=== PATIENT | female | born 1985 | race Caucasian/White ===

== ENCOUNTER 2016-09-16 15:49 | Emergency (ER) | payer OTHER ==
[~2016-09-16] VITALS: Ht 160 cm; Wt 58.5 kg
[2016-09-16 16:06] VITALS: Ht 160 cm; Wt 58.5 kg
[2016-09-16] MEDS ORDERED: SOD CHLORIDE 0.9% 1,000 ML IV STA (16:53)
[2016-09-16] MEDS ORDERED: morphine 4 MG/ML VIAL IV STA (16:53)
[2016-09-16] MEDS ORDERED: ONDANSETRON 4 MG INJ IV STA (16:53)
[2016-09-16 17:26] LABS: HEMATOCRIT 40.3 % (37.0-47.0); HEMOGLOBIN 13.6 g/dl (12.0-16.0); MEAN CORPUSCULAR HEMOGLOBIN 29.3 pg (29.0-33.0); MEAN CORPUSCULAR HGB CONC 33.8 g/dl (32.0-37.0); MEAN CORPUSCULAR VOLUME 86.5 fl (82.0-101.0); MEAN PLATELET VOLUME 10.9 fl (7.4-10.4); PLATELET COUNT 164 10^3/UL (140-440); RED BLOOD COUNT 4.67 10^6/ul (4.20-5.40); UNCORRECTED WBC 17.9 10^3/ul (4.8-10.8); WHITE BLOOD COUNT 17.9 10^3/ul (4.8-10.8)
[2016-09-16 17:27] LABS: ADD UMIC YES; URINE BILIRUBIN (Dip) NEGATIVE (NEGATIVE); URINE BLOOD (Dip) 3+ (NEGATIVE); URINE COLOR LT. YELLOW (YELLOW); URINE GLUCOSE (Dip) NEGATIVE (NEGATIVE); URINE KETONES (Dip) 3+ (NEGATIVE); URINE LEUKOCYTE ESTERASE (Dip) NEGATIVE (NEGATIVE); URINE NITRITE (Dip) NEGATIVE (NEGATIVE); URINE TOTAL PROTEIN (Dip) TRACE (NEGATIVE); URINE UROBILINOGEN (Dip) 0.2 E.U./dL (0.1-1.0)
[2016-09-16 17:31] LABS: CONDITION 1; LH ANALYZER COMMENTS 1; SUSPECT 1
[2016-09-16 17:35] LABS: ALBUMIN 4.6 g/dl (3.3-4.9); BACTERIA,URINE RARE; SQUAMOUS EPITHELIAL CELL,UR MODERATE; URINE RBCS 0-2 /HPF (0)
[2016-09-16 17:36] LABS: POTASSIUM 3.9 mmol/L (3.5-5.1)
[2016-09-16 17:37] LABS: CREATININE 0.61 mg/dl (0.44-1.00)
[2016-09-16 17:38] LABS: ALBUMIN/GLOBULIN RATIO 1.48; BILIRUBIN,INDIRECT 1.3 mg/dl (0-1.1); BILIRUBIN,TOTAL 1.3 mg/dl (0.2-1.3); TOTAL PROTEIN 7.7 g/dl (6.1-8.1)
[2016-09-16 17:39] LABS: CALCIUM 9.8 mg/dl (8.4-10.2)
[2016-09-16 17:59] LABS: LYMPHOCYTES # 1.3 10^3/ul (0.8-2.9); MONOCYTE # 0.9 10^3/ul (0.3-0.9); NEUTROPHIL # 15.8 10^3/ul (1.6-7.5)
[2016-09-16 18:00] LABS: PLATELET ESTIMATE PLT APPEAR ADEQUATE
--- NOTE | 2016-09-16 18:03 | RADRPT ---
PROCEDURE: Ultrasound pelvis CLINICAL INDICATION: Pelvic pain. Command spine of menstrual cycle, today. TECHNIQUE: Ultrasound pelvis COMPARISON: None FINDINGS: Uterus measures 77 x 40 x 59 mm. Right ovary measures 35 x 14 x 22 mm. Left ovary measures 29 x 20 x 25 mm. Endometrium is slightly thickened at 13 mm. No free fluid or adnexal masses. No ovarian torsion. IMPRESSION: 1. Slightly thickened endometrium measures 13 mm. 2. Otherwise, no acute process in the pelvis. Physician Jodie Date Time Electronically viewed and signed by Physician Jodie on 09/16/2016 18:03 RS/
--- NOTE | 2016-09-16 18:04 | RADRPT ---
PROCEDURE: CT Abdomen and Pelvis without contrast. CLINICAL INDICATION: Endometriosis. Abdominal pelvic pain. TECHNIQUE: CT scan of the abdomen and pelvis without contrast was performed on a multidetector hig h-resolution CT scanner. The patient was scanned without intravenous contrast. Coronal and sagittal reformatted images were obtained from the axial source images. Images were reviewed on a high-resol [employer] PACS workstation. The total exam CTDI equals 7.37 mGy and the total exam DLP equals 353.47 mGy -cm. One or more of the following dose reduction techniques were used: - Automated exposure control. - Adjustment of the mA and/or kV according to patient size. - Use of iterative reconstruction technique. COMPARISON: Pelvic ultrasound dated 09/16/2016, performed earlier today FINDINGS: CT abdomen: Evaluation is limited due to lack of oral and IV contrast. The lung bases are clear. The heart size is normal, without pericardial thickening or effusion. Th e liver is normal in size and density without focal mass or intrahepatic biliary dilatation. The sp atilio is normal in size and homogeneous in density. The stomach is partially collapsed, but is gross ly unremarkable. The pancreas as visualized is normal. The gallbladder and biliary tree are unrema rkable and there is no evidence for biliary dilatation. The adrenal glands are symmetric and normal . The kidneys are symmetrically unremarkable as well. No renal calculus or obstructive uropathy or mass lesion is seen. The aorta is of normal caliber. There is no retroperitoneal lymphadenopathy. The ted hepatis reg ion is clear. The bowel and mesentery, as visualized, are equally unremarkable. CT pelvis: The small bowel loops situated within the pelvis are unremarkable. The appendix is normal. The pel sissy organs are remarkable for enlargement and heterogeneity of the left ovary and left adnexa. Pelv ic MRI is advised for more complete assessment. The pelvic sidewalls and inguinal regions are clear . The sigmoid colon and rectum are unremarkable. No mass or adenopathy is seen. No free fluid is p resent. No acute inflammation is identified at this time. Benign phleboliths are seen within the lo wer pelvis. The surrounding osseous structures are unremarkable. No osteolytic or osteoblastic lesion is detect ed. IMPRESSION: 1. Limited study due to lack of oral and IV contrast. 2. No mass, lymphadenopathy, or focal acute inflammatory process. 3. Enlargement and heterogeneity of the left ovary and adnexa. Endometriosis implant may be presen t at this location. MRI is recommended for more complete assessment. RPTAT: HMJB .Javad Bernard MD, Date Time Electronically viewed and signed by .Javad Bernard MD, on 09/16/2016 18:04 .B/
[2016-09-16] MEDS ORDERED: HYDR-906 PO (18:28)
[2016-09-16] MEDS ORDERED: ONDA4TAB8 PO (18:28)
[2016-09-16] MEDS ORDERED: IBUP-1542 PO (18:28)
--- NOTE | 2016-09-16 18:40 | ERD ---
ER Documentation Chief Complaint Date/Time DATE: 09/16/16 TIME: 18:34 Chief Complaint AP since 10 AM, Vomited 12 X'S TODAY, hot and cold flashes. HPI This is a 31-year-old female that presents to the ER with pelvic pain that started this morning at 10 AM. Patient got her period today and states she has endometriosis and experiences this occasionally with her periods. Patient has vomited 12 times today. Pain is cramping in nature and is intermittent. She states it feels as if she is having contractions. She denies any fevers or chills. She denies any diarrhea. Patient's diagnosis has been confirmed by exploratory laparoscopy. ROS 12 point review of systems was done, all negative except per HPI. Medications Home Meds Active Scripts Ibuprofen* (Motrin*) 600 Mg Tab, 600 MG PO Q6, #30 TAB Prov:CARLOS ALBERTO NEGRON 09/16/16 Hydrocodone/Acetaminophen (Maybell 5-325 Tablet) 1 Each Tablet, 1 TAB PO Q6H Y for PAIN, #20 TAB Prov:CARLOS ALBERTO NEGRON 09/16/16 Ondansetron Hcl* (Zofran*) 4 Mg Tablet, 4 MG PO Q6H for NAUSEA AND/OR VOMITING, #30 TAB Prov:CARLOS ALBERTO NEGRON 09/16/16 PMhx/Soc Hx Alcohol Use: No Hx Substance Use: No Hx Tobacco Use: No Physical Exam Vitals Vital Signs Date Time Temp Pulse Resp B/P Pulse Ox O2 Delivery O2 Flow Rate FiO2 09/16/16 16:06 97.9 62 18 111/66 100 Physical Exam GENERAL: patient is in significant distress secondary to pain. HEENT: Atraumatic. CHEST: Clear to auscultation bilaterally. There are no rales, wheezes or rhonchi. HEART: Regular rate and rhythm. No murmurs, clicks, rubs or gallops. ABDOMEN: Soft, nontender and nondistended. Good bowel sounds. No rebound or guarding. No gross peritonitis. No gross organomegaly or masses. No Alas sign or McBurney point tenderness. ttp in the pelvic area. BACK: No midline or flank tenderness. NEURO: Alert and oriented. SKIN: The skin is warm and dry. Result Diagram: 09/16/16 1700 09/16/16 1700 Results 24 hrs Laboratory Tests Test 09/16/16 17:00 Alanine Aminotransferase (ALT/SGPT) 23IU/L Albumin 4.6g/dl Albumin/Globulin Ratio 1.48 Alkaline Phosphatase 64IU/L Anion Gap 19 Aspartate Amino Transf (AST/SGOT) 27IU/L Blood Morphology Comment Blood Urea Nitrogen 12mg/dl Calcium Level 9.8mg/dl Carbon Dioxide Level 23mmol/L Chloride Level 104mmol/L Creatinine 0.61mg/dl Direct Bilirubin 0.00mg/dl Giant Platelets RARE Globulin 3.10g/dl Glucose Level 121mg/dl Hematocrit 40.3% Hemoglobin 13.6g/dl Indirect Bilirubin 1.3mg/dl Large Platelets OCCASIONAL Lipase 74U/L Lymphocytes # 1.310^3/ul Lymphocytes % 7.0% Mean Corpuscular Hemoglobin 29.3pg Mean Corpuscular Hemoglobin Concent 33.8g/dl Mean Corpuscular Volume 86.5fl Mean Platelet Volume 10.9fl Monocytes # 0.910^3/ul Monocytes % 5.0% Neutrophils # 15.810^3/ul Neutrophils % 88.0% Platelet Count 22130^3/UL Platelet Estimate PLT APPEAR ADEQUATE Potassium Level 3.9mmol/L Red Blood Count 4.6710^6/ul Red Cell Distribution Width 14.0% Sodium Level 142mmol/L Total Bilirubin 1.3mg/dl Total Protein 7.7g/dl Urine Bacteria RARE Urine Bilirubin NEGATIVE Urine Clarity CLEAR Urine Color LT. YELLOW Urine Glucose NEGATIVE% Urine Hemoglobin 3+ Urine Ketones 3+ Urine Leukocyte Esterase NEGATIVE Urine Microscopic RBC 0-2/HPF Urine Microscopic WBC 0-2/HPF Urine Nitrite NEGATIVE Urine Specific Aurelia 1.020 Urine Squamous Epithelial Cells MODERATE Urine Total Protein TRACE Urine Urobilinogen 0.2 E.U./dL Urine pH 7.0 White Blood Count 17.910^3/ul Current Medications Medications (Trade) Dose Ordered Sig/Erika Route PRN Reason Start Time Stop Time Status Last Admin Dose Admin Sodium Chloride (NS) 1,000 ml @ 1,000 mls/hr Q1H STAT IV 09/16/16 16:53 09/16/16 17:52 DC 09/16/16 17:06 Morphine Sulfate (morphine) 5 mg ONCE STAT IV 09/16/16 16:53 09/16/16 16:56 DC 09/16/16 17:06 Ondansetron HCl (Zofran Inj) 4 mg ONCE STAT IV 09/16/16 16:53 09/16/16 16:56 DC 09/16/16 17:06 Departure Diagnosis: Primary Impression: Abdominal pain Condition: Stable Patient Instructions: Abdominal Pain Additional Instructions: Call your primary care doctor TOMORROW for an appointment during the next 1-2 days.See the doctor sooner or return here if your condition worsens before your appointment time. CARLOS ALBERTO NEGRON Sep 16, 2016 18:40
[2016-09-16] MEDS ORDERED: SOD CHLORIDE 0.9% 1,000 ML IV ONE (19:00)
[2016-09-16 19:27] VITALS: BP 109/57; PULSE 69; RESP 16
== END 2016-09-16 19:31 | disposition home or self-care (01) ==
LOC: FTE 15:49
DX: R10.2 Pelvic and perineal pain (principal); R11.10 Vomiting, unspecified
CPT/HCPCS: 74176; 76856; 80053; 81001; 83690; 85025; J2270; J2405; J7030; 36415; 81003; 96374; 96375

== ENCOUNTER 2016-12-05 13:18 | Emergency (ER) | payer OTHER ==
[~2016-12-05] VITALS: Ht 160 cm; Wt 58.0 kg
[~2016-12-05 13:18] MED LIST: HYDR-906 PO; IBUP-1542 PO; ONDA4TAB8 PO
[2016-12-05 13:40] VITALS: Ht 160 cm; Wt 58.0 kg
[2016-12-05] MEDS ORDERED: ONDANSETRON (ODT) 4 MG TAB ODT STA (15:47)
[2016-12-05 15:54] LABS: URINE BLOOD (Dip) POC 3+ (NEGATIVE)
[2016-12-05] MEDS ORDERED: HYDROCODONE/APAP (5/325) TAB PO ONE (16:00)
--- NOTE | 2016-12-05 16:13 | ERD ---
ER Documentation Chief Complaint Date/Time DATE: 12/05/16 TIME: 16:13 Chief Complaint Pelvic pain since 11 am this morning, Dx of edometriosis HPI This is a 31-year-old female who presents to the emergency department today complaining of pelvic pain and nausea. Patient states she has a history of endometriosis and has had this problem since she started her menstrual cycle at age 11. States she has not been able to find anybody that will help her have surgery. States she has tried to change her insurance multiple times for better coverage but she has not had any success. States that her pain is better now since coming to the emergency department and this is always the same pain that she has. States that she has her period approximately every 45 days. Denies missing any menstrual cycles. States she has some nausea. Denies any dysuria, fevers or chills per ROS All systems reviewed and are negative except as per history of present illness. Medications Home Meds Active Scripts Ondansetron Hcl* (Zofran*) 4 Mg Tablet, 4 MG PO Q6H for NAUSEA AND/OR VOMITING, #30 TAB Prov:MIKAEL MANUEL PA-C 12/05/16 Naproxen* (Naprosyn*) 500 Mg Tablet, 500 MG PO BID Y for PAIN AND/OR INFLAMMATION, #30 TAB Prov:MIKAEL MANUEL PA-C 12/05/16 Hydrocodone/Acetaminophen (Cushing 5-325 Tablet) 1 Each Tablet, 1 TAB PO Q6H Y for PAIN, #10 TAB Prov:MIKAEL MANUEL PA-C 12/05/16 Ibuprofen* (Motrin*) 600 Mg Tab, 600 MG PO Q6, #30 TAB Prov:CARLOS ALBERTO NEGRON 09/16/16 Hydrocodone/Acetaminophen (Cushing 5-325 Tablet) 1 Each Tablet, 1 TAB PO Q6H Y for PAIN, #20 TAB Prov:CARLOS ALBERTO NEGRON 09/16/16 Ondansetron Hcl* (Zofran*) 4 Mg Tablet, 4 MG PO Q6H for NAUSEA AND/OR VOMITING, #30 TAB Prov:JAMLICARLOS ALBERTO C 09/16/16 Allergies Allergies: Uncoded Allergies: SULFA (Allergy, Intermediate, 12/05/16) PMhx/Soc Hx Alcohol Use: No Hx Substance Use: No Hx Tobacco Use: No Smoking Status: Never smoker Physical Exam Vitals Vital Signs Date Time Temp Pulse Resp B/P Pulse Ox O2 Delivery O2 Flow Rate FiO2 12/05/16 13:40 97.1 51 20 103/54 100 Physical Exam Const: Tearful, no acute distress Head: Atraumatic Eyes: Normal Conjunctiva ENT: Normal External Ears, Nose and Mouth. Neck: Full range of motion..~ No meningismus. Resp: Clear to auscultation bilaterally Cardio: Regular rate and rhythm, no murmurs Abd: Soft, mild suprapubic tenderness and left sided pelvic pain non distended. Normal bowel sounds. No right lower quadrant pain. No tenderness McBurney's. Skin: No petechiae or rashes Back: No midline or flank tenderness Neur: Awake and alert Psych: Normal Mood and Affect Results 24 hrs Laboratory Tests Test 12/05/16 15:54 Bedside Urine pH (LAB) 6.0 Bedside Urine Protein (LAB) 1+ Bedside Urine Glucose (UA) Negative Bedside Urine Ketones (LAB) 2+ Bedside Urine Blood 3+ Bedside Urine Nitrite (LAB) Negative Bedside Urine Leukocyte Esterase (L Negative Current Medications Medications (Trade) Dose Ordered Sig/Erika Route PRN Reason Start Time Stop Time Status Last Admin Dose Admin Ondansetron HCl (Zofran Odt) 4 mg ONCE STAT ODT 12/05/16 15:47 12/05/16 15:48 DC 12/05/16 16:00 Acetaminophen/ Hydrocodone Bitart (Cushing (5/325)) 1 tab ONCE ONCE PO 12/05/16 16:00 12/05/16 16:01 DC 12/05/16 16:00 Procedures/MDM This is a 31-year-old female who presents to the emergency department today with pelvic pain. Patient has a history of endometriosis since beginning her menstrual cycle at age 11. She has not been able to find an [employer] that would be able to perform surgery on her. Patient indicated today that she just wanted something for her pain and nausea and that she did not want further workup as the pain is the same as she usually has just slightly increased today. Patient was tearful and visibly frustrated as she has not had success with her insurance. I did obtain a test and UA. test is negative. Low suspicion for ectopic . UA is negative for infection. There is 3+ hematuria. Patient is currently on her menstrual cycle. Previous patient did have an ultrasound done on September 16, 2016 shows slightly thickened endometrium measuring 13 mm. There is no free fluid or adnexal masses at that time and there is no ovarian torsion. Again patient did not want to have any laboratory workup or imaging done at this time as she states that her pain is consistent every time she has her menstrual cycle. I do have low suspicion for tubo-ovarian abscess or ovarian torsion given that patient is afebrile and patient endorses that this is the same pain that she always has every month. Low suspicion for any acute surgical abdomen at this time. Patient was given a Cushing and Zofran here in the emergency department. I gave her a list of [employer] resources. She was given a very short course of Cushing for home. Patient did bring in the bottle and she did have a couple of pain pills left and she does not appear to be abusing these medications as she states she only takes half a pill when she does take them. Patient was last seen here in August for the same complaint. Patient was also given a prescription for Naprosyn and Zofran. At this time the patient is stable for discharge and outpatient management. Patient should follow up with their PCP in the next 1-2 days. They may return to the emergency department sooner for any persistent or worsening of symptoms. Patient understood and agreed with the plan. Departure Diagnosis: Primary Impression: Pelvic pain Condition: MIKAEL Hui PA-C Dec 05, 2016 16:13
[2016-12-05] MEDS ORDERED: ONDA4TAB8 PO (16:14)
[2016-12-05] MEDS ORDERED: HYDR-906 PO (16:14)
[2016-12-05] MEDS ORDERED: NAPR-260 PO (16:14)
[2016-12-05 16:27] VITALS: BP 124/74; PULSE 77; RESP 18
== END 2016-12-05 16:29 | disposition home or self-care (01) ==
LOC: FTE 13:18
DX: R10.2 Pelvic and perineal pain (principal)
CPT/HCPCS: 81003; Z7502; Z7610; 99284